=== PATIENT | female | born 1990 | race Caucasian/White ===

== ENCOUNTER 2016-09-11 08:57 | Emergency (ER) | payer OTHER ==
--- NOTE | 2016-09-11 09:52 | UC ---
Complaint Female HPI - HPI Summary HPI Summary: complaint of dysuria burning with urination started today increased urgency and frequency of urination suprapubic pain for 1 day denies back and flank pain denies fever and chills LMP today took naproxen with minimal relief frequent UTI's for the last year - History Of Current Complaint Chief Complaint: UCGU Stated Complaint: URINARY COMPLAINT Time Seen by Provider: 09/11/16 09:44 Hx Obtained From: Patient Hx Last Menstrual Period: 09/11/16 - Allergies/Home Medications Allergies/Adverse Reactions: Allergies Allergy/AdvReac Type Severity Reaction Status Date / Time Cephalexin Allergy Intermediate Rash Verified 09/11/16 09:38 Latex AdvReac Rash Verified 09/11/16 09:38 Home Medications: Home Medications Naproxen TAB* [Naprosyn 250 mg TAB*] 250 mg PO ONCE PRN 09/11/16 [History Confirmed 09/11/16] PMH/Surg Hx/FS Hx/Imm Hx Previously Healthy: Yes Respiratory History: Asthma Psychological History: Anxiety, Depression - Surgical History Surgical History: None - Family History Known Family History: Positive: None Negative: Cardiac Disease, Hypertension, Diabetes, Other - [place], [place] - Social History Occupation: Employed Full-time Lives: With Family Alcohol Use: None Substance Use Type: None Smoking Status (MU): Never Smoked Tobacco - Immunization History Most Recent Influenza Vaccination: none Review of Systems Constitutional: Negative Skin: Negative Eyes: Negative ENT: Negative Respiratory: Negative Cardiovascular: Negative Gastrointestinal: Abdominal Pain Genitourinary: Dysuria, Frequency, Urgency Motor: Negative Neurovascular: Negative Musculoskeletal: Negative Neurological: Negative Psychological: Negative All Other Systems Reviewed And Are Negative: Yes Physical Exam Triage Information Reviewed: Yes Appearance: No Pain Distress, Well-Nourished Vital Signs: Initial Vital Signs Temp 99.2 F 09/11/16 09:39 Pulse 93 09/11/16 09:39 Resp 16 09/11/16 09:39 BP 103/64 09/11/16 09:39 Pulse Ox 98 09/11/16 09:39 Vital Signs Reviewed: Yes Eyes: Positive: Conjunctiva Clear ENT: Positive: Pharynx normal, TMs normal Neck: Positive: No Lymphadenopathy Respiratory: Positive: Lungs clear, Normal breath sounds, No respiratory distress Cardiovascular: Positive: RRR, No Murmur, Pulses Normal Abdomen Description: Positive: Nontender, No Organomegaly, Soft. Negative: CVA Tenderness (R), CVA Tenderness (L), Distended, Guarding Bowel Sounds: Positive: Present Musculoskeletal: Positive: No Edema Neurological: Positive: Alert Psychological Exam: Normal Skin Exam: Normal Complaint Female Dx - Course Course Of Treatment: culture sent. will treat with macrobid and pyridium - Differential Dx/Diagnosis Differential Diagnosis/HQI/PQRI: Ureteral Stone, Urinary Tract Infection Provider Diagnoses: UTI Discharge - Discharge Plan Condition: Stable Disposition: HOME Prescriptions: Nitrofurantoin Monohyd Macro [Macrobid] 100 mg PO BID #10 cap Phenazopyridine TAB* [Pyridium 100 mg TAB*] 100 mg PO TID #6 tab Patient Education Materials: Urinary Tract Infection in Women (ED) Referrals: Papito Avalos MD [Primary Care Provider] - Additional Instructions: Please start antibiotic and pyridium as directed Increase fluids and rest Take acetaminophen or ibuprofen for fever or pain Please review your discharge instructions. If your symptoms do not improve please call your primary care provider or return to urgent care. .
[2016-09-11 09:58] VITALS: BP 103/64
== END 2016-09-11 10:17 | disposition home or self-care (01) ==
LOC: UCCORT 08:57
DX: N39.0 Urinary tract infection, site not specified (principal)
CPT/HCPCS: 81003; 87086; 99212; G0463

== ENCOUNTER 2017-04-01 07:40 | Emergency (ER) | payer OTHER ==
[2017-04-01 07:56] VITALS: BP 90/56
--- NOTE | 2017-04-01 08:17 | UC ---
Complaint Female HPI - HPI Summary HPI Summary: Per senior engineer: "Urinary frequency and dysuria last couple days. [place] feverish, tmax 99. Denies taking pyridium/Azo. " Here with her 3 young kids. no body aches, n/v. has had many UTIs and feels consistent. usually uses macrobid with good results. - History Of Current Complaint Chief Complaint: UCGU Stated Complaint: UTI SYMPTOMS Time Seen by Provider: 04/01/17 07:45 Hx Last Menstrual Period: 03/14/17 - Allergies/Home Medications Allergies/Adverse Reactions: Allergies Allergy/AdvReac Type Severity Reaction Status Date / Time Cephalexin Allergy Intermediate Rash Verified 04/01/17 07:50 Latex AdvReac Rash Verified 04/01/17 07:50 PMH/Surg Hx/FS Hx/Imm Hx Previously Healthy: Yes Psychological History: Anxiety - Surgical History Surgical History: None - Family History Known Family History: Positive: Cardiac Disease - GM Negative: Hypertension, Diabetes, Other - [place], [place] - Social History Alcohol Use: None Substance Use Type: None Smoking Status (MU): Never Smoked Tobacco - Immunization History Most Recent Influenza Vaccination: not yet 2017 Review of Systems Constitutional: Fever - Tmax 99 Skin: Negative Eyes: Negative ENT: Negative Respiratory: Negative Cardiovascular: Negative Gastrointestinal: Negative Genitourinary: Dysuria, Frequency Motor: Negative Neurovascular: Negative Musculoskeletal: Negative Neurological: Negative Psychological: Negative Is Patient Immunocompromised?: No All Other Systems Reviewed And Are Negative: Yes Physical Exam Triage Information Reviewed: Yes Appearance: Well-Appearing, No Pain Distress, Well-Nourished Vital Signs: Initial Vital Signs Temp 97 F 04/01/17 07:54 Pulse 83 04/01/17 07:54 Resp 16 04/01/17 07:54 BP 90/56 04/01/17 07:54 Pulse Ox 100 04/01/17 07:54 Vital Signs Reviewed: Yes Eye Exam: Normal ENT: Positive: Pharynx normal Respiratory: Positive: Lungs clear, Normal breath sounds, No respiratory distress, No accessory muscle use Cardiovascular: Positive: RRR, No Murmur, Pulses Normal Abdomen Description: Positive: Soft, Other: - mild suprapubic tenderness. Negative: CVA Tenderness (R), CVA Tenderness (L), Distended, Guarding Musculoskeletal Exam: Normal Neurological Exam: Normal Psychological Exam: Normal Skin Exam: Normal Complaint Female Dx - Differential Dx/Diagnosis Differential Diagnosis/HQI/PQRI: Urinary Tract Infection Provider Diagnoses: UTI Discharge - Discharge Plan Condition: Stable Disposition: HOME Prescriptions: Nitrofurantoin Monohyd Macro [Macrobid] 100 mg PO BID #14 cap Phenazopyridine 200 mg (NF) [Pyridium 200 MG tab *] 200 mg PO TID #6 tab Patient Education Materials: Urinary Tract Infection in Women (ED) Referrals: Papito Avalos MD [Primary Care Provider] - Additional Instructions: Make sure to drink plenty of water. Please go to ER if you develop fevers, chills body aches or worsening symptoms.
--- NOTE | 2017-04-03 07:11 | UC ---
- Progress Note Progress Note: call patient.ucx no growth. see how patient is doing. urine dip had +2 LE.
== END 2017-04-01 08:30 | disposition home or self-care (01) ==
LOC: UCCORT 07:40
DX: N39.0 Urinary tract infection, site not specified (principal)
CPT/HCPCS: 81003; 87086; 99212; G0463

== ENCOUNTER 2018-03-28 09:30 | Emergency (ER) | payer OTHER ==
[2018-03-28 11:09] VITALS: BP 108/62
--- NOTE | 2018-03-28 11:40 | UC ---
Hand/Wrist HPI - HPI Summary HPI Summary: 27 y/o female with h/o R thumb fx ~ 1 year ago, treated with cast, EMG- "nerve involvement", fell over dog ~ 10 days ago, FOOSH, + pain, no swelling, no bruising, pain worse after emptying teresa litter. + numbness at tip of thumb, pain at thumb, index finger. Denies dropping objects, decreased strength. - History Of Current Complaint Chief Complaint: UCUpperExtremity Stated Complaint: RIGHT WRIST INJURY Time Seen by Provider: 03/28/18 11:24 Hx Obtained From: Patient Hx Last Menstrual Period: ON DEPO INJ ?: No Onset/Duration: Sudden Onset, Lasting Days Severity Initially: Moderate Severity Currently: Moderate Pain Intensity: 8 Pain Scale Used: 0-10 Numeric Character Of Pain: Sharp - with movement, Dull, Aching - at rest Aggravating Factor(s): Lifting Alleviating Factor(s): Rest, Ice, OTC Meds - advil Associated Signs And Symptoms: Positive: Weakness, Numbness/Tingling - thumb tip Related History: Similar Episode/Dx As - prior dx'd with nerve entrapment - Allergies/Home Medications Allergies/Adverse Reactions: Allergies Allergy/AdvReac Type Severity Reaction Status Date / Time cephalexin Allergy Rash Verified 03/28/18 11:01 latex Allergy Rash Verified 03/28/18 11:01 Home Medications: Home Medications medroxyPROGESTERone ACETATE* [DEPO-Provera*] 1 syringe ONCE 03/28/18 [History Confirmed 03/28/18] PMH/Surg Hx/FS Hx/Imm Hx Previously Healthy: Yes - recent of child - Surgical History Surgical History: None - Family History Known Family History: Positive: None, Cardiac Disease - GM Negative: Hypertension, Diabetes, Other - [place], [place] - Social History Alcohol Use: None Substance Use Type: None Smoking Status (MU): Never Smoked Tobacco - Immunization History Most Recent Influenza Vaccination: not yet 2017 Review of Systems All Other Systems Reviewed And Are Negative: Yes Musculoskeletal: Positive: Arthralgia, Decreased ROM, Edema, Myalgia Is Patient Immunocompromised?: No Physical Exam Triage Information Reviewed: Yes Appearance: Well-Appearing, No Pain Distress, Well-Nourished Vital Signs: Initial Vital Signs Temp 98.3 F 03/28/18 11:02 Pulse 80 03/28/18 11:02 Resp 16 03/28/18 11:02 BP 108/62 03/28/18 11:02 Pulse Ox 99 03/28/18 11:02 Eyes: Positive: Conjunctiva Clear Musculoskeletal: Positive: ROM Intact, No Edema, Strength Limited @ - decreeased strength due to pain with thumb flexion, abd, add. decreased sensation over R thumb tip, radial/ ulnar pulses 2+ R, no thenar wasting, + tinels, + allens R side Neurological: Positive: Other: - Decreased sensation to light touch R thumb Psychological Exam: Normal Skin Exam: Normal Skin: Positive: Other - no open wounds, sores Hand/Wrist Course/Dx - Course Course Of Treatment: radiograph neg for fx, splint given, told to wear at least at night, short course steroids. FOllow up with ortho for further eval - Differential Dx/Diagnosis Differential Diagnosis/HQI/PQRI: Carpal Tunnel Syndrome, Puncture Wound, Tendonitis, Tenosynovitis Provider Diagnosis: Carpal tunnel syndrome, right Discharge - Sign-Out/Discharge Documenting (check all that apply): Patient Departure All imaging exams completed and their final reports reviewed: No Studies - Discharge Plan Condition: Good Disposition: HOME Prescriptions: predniSONE [Prednisone 20 MG TAB] 20 mg PO DAILY #3 tablet Patient Education Materials: Paresthesia (ED) Referrals: Papito Avalos MD [Primary Care Provider] - Clive Cabrera MD [Medical Doctor] - Additional Instructions: - splint for comfort, use at night to help decrease symptoms - Prednisone to help with inflammation, stop Motrin/ Alleve while taking - Rest, Ice - FOllow up with orthopedics if no improvement - Billing Disposition and Condition Condition: GOOD Disposition: Home - Attestation Statements Provider Attestation: I was available for consult. This patient was seen by the NIA. The patient was not presented to, seen by, or examined by me. -Ricki
== END 2018-03-28 12:05 | disposition home or self-care (01) ==
LOC: UCCORT 09:30
DX: G56.01 Carpal tunnel syndrome, right upper limb (principal); Z88.1 Allergy status to other antibiotic agents
CPT/HCPCS: 99213; G0463

== ENCOUNTER 2018-11-05 08:07 | Emergency (ER) | payer OTHER ==
[2018-11-05 08:22] VITALS: BP 87/61
--- NOTE | 2018-11-05 08:34 | UC ---
Lower Extremity/Ankle HPI - HPI Summary HPI Summary: 27-year-old female who fell up steps yesterday causing a contusion to her right foot dorsal area. She states is still painful today and requests an x-ray. - History of Current Complaint Chief Complaint: UCLowerExtremity Stated Complaint: RIGHT FOOT INJURY Time Seen by Provider: 11/05/18 08:09 Hx Obtained From: Patient Hx Last Menstrual Period: ON DEPO INJ ?: No Onset/Duration: Sudden Onset Severity Initially: Mild Severity Currently: Mild Pain Intensity: 8 Aggravating Factor(s): Ambulation Alleviating Factor(s): Nothing Able to Bear Weight: Yes - Allergies/Home Medications Allergies/Adverse Reactions: Allergies Allergy/AdvReac Type Severity Reaction Status Date / Time cephalexin Allergy Rash Verified 11/05/18 08:21 latex Allergy Rash Verified 11/05/18 08:21 Home Medications: Home Medications Ibuprofen TAB* [Motrin TAB* 800 MG] 800 mg PO ONCE PRN 11/05/18 [History Confirmed 11/05/18] PMH/Surg Hx/FS Hx/Imm Hx Previously Healthy: Yes Respiratory History: Asthma - Surgical History Surgical History: None - Family History Known Family History: Positive: None, Cardiac Disease - GM Negative: Hypertension, Diabetes, Other - [place], [place] - Social History Alcohol Use: None Substance Use Type: None Smoking Status (MU): Never Smoked Tobacco - Immunization History Most Recent Influenza Vaccination: not yet 2017 Review of Systems All Other Systems Reviewed And Are Negative: Yes Skin: Positive: Bruising - Bruise dorsum right foot. Is Patient Immunocompromised?: No Physical Exam Triage Information Reviewed: Yes Appearance: Well-Appearing, No Pain Distress, Well-Nourished Vital Signs: Initial Vital Signs Temp 98.7 F 11/05/18 08:19 Pulse 98 11/05/18 08:19 Resp 16 11/05/18 08:19 BP 87/61 11/05/18 08:19 Pulse Ox 97 11/05/18 08:19 Vital Signs Reviewed: Yes Musculoskeletal Exam: Normal Musculoskeletal: Positive: Strength Intact, ROM Intact, No Edema, Other: - Good peripheral pulses neuro sensation capillary refill, Achilles is intact, no deformity, erythema. Neurological: Positive: Alert, Muscle Tone Normal Psychological: Positive: Normal Response To Family Skin: Positive: Other - Minor bruise with minimal swelling to the dorsum of right foot. Lower Extremity Course/Dx - Course Course Of Treatment: Right foot x-ray:BONE DENSITY: Normal. BONES: There is no displaced fracture. JOINTS: There is no arthropathy. ALIGNMENT: There is no dislocation. SOFT TISSUES: Unremarkable. OTHER FINDINGS: None. IMPRESSION: NO ACUTE OSSEOUS INJURY. IF SYMPTOMS PERSIST, RECOMMEND REPEAT IMAGING. - Differential Dx/Diagnosis Provider Diagnosis: Foot contusion Discharge - Sign-Out/Discharge Documenting (check all that apply): Patient Departure All imaging exams completed and their final reports reviewed: Yes - Discharge Plan Condition: Good Disposition: HOME Patient Education Materials: Foot Contusion (ED) Referrals: Papito Avalos MD [Primary Care Provider] - Patricia Santa MD [Medical Doctor] - Additional Instructions: Apply ice to the sore area. May take Tylenol for pain or ibuprofen as directed. Follow-up with the orthopedist if no improvement in 4 or 5 days. - Billing Disposition and Condition Condition: GOOD Disposition: Home - Attestation Statements Provider Attestation: This patient was not seen by me. I was available for consult. MARGRET
== END 2018-11-05 08:45 | disposition home or self-care (01) ==
LOC: UCCORT 08:07
DX: S90.31XA Contusion of right foot, initial encounter (principal); W10.9XXA Fall (on) (from) unspecified stairs and steps, initial encounter; Y92.9 Unspecified place or not applicable
CPT/HCPCS: 99211; G0463